=== PATIENT | female | born 1995 | race Caucasian/White ===

== ENCOUNTER 2017-10-10 12:02 | Emergency (ER) | payer OTHER ==
--- NOTE | 2017-10-10 13:57 | RAD ---
RIGHT WRIST RADIOGRAPHS 3 VIEWS: DATE: 10/10/17. PROVIDED CLINICAL HISTORY: Right wrist pain status post injury. FINDINGS: No definite evidence for a fracture or other acute osseous abnormality. If there is persistent clini nemo concern, conservative management and followup imaging are advised. Subtle vertical radiolucency projecting over the distal radius on the frontal view is presumably artifactual as it is not reproduc ed on the additional views. IMPRESSION: As above. POS: [facility]
== END 2017-10-10 12:33 | disposition home or self-care (01) ==
LOC: ERS 12:02
DX: S63.501A Unspecified sprain of right wrist, initial encounter (principal); S64.11XA Injury of median nerve at wrist and hand level of right arm, initial encounter; X50.1XXA Overexertion from prolonged static or awkward postures, initial encounter; Y99.0 Civilian activity done for income or pay

== ENCOUNTER 2017-12-08 05:21 | Emergency (ER) | payer OTHER ==
[2017-12-08] MEDS ORDERED: Ketorolac Tromethamine 30 MG/ML VIAL ONE (05:30)
[2017-12-08] MEDS ORDERED: Acetaminophen 500 MG TAB ONE (07:16)
--- NOTE | 2017-12-08 08:59 | RAD ---
CHEST 1 VIEW: Date: 12/08/17 HISTORY: 22-year-old female with history of chest pain, primarily left-sided, with difficulty breathing. FINDINGS: Monitor leads overlie the chest. Heart size is within normal limits. The lungs are clear. IMPRESSION: No acute intrathoracic disease. POS: [facility]
--- NOTE | 2017-12-12 12:51 | EKG ---
Test Reason : LSIDE PAIN Blood Pressure : / mmHG Vent. Rate : 079 BPM Atrial Rate : 079 BPM P-R Int : 144 ms QRS Dur : 074 ms QT Int : 366 ms P-R-T Axes : 092 063 063 degrees QTc Int : 419 ms Normal sinus rhythm Normal ECG Confirmed by JEREMY MEJIA ([id number]), staff editor ELSA PEDRAZA ([id number]) on 12/12/2017 12:51:09 PM Referred By: JEISON Confirmed By:JEREMY MEJIA
== END 2017-12-08 07:21 | disposition home or self-care (01) ==
LOC: ERS 05:21
DX: R07.89 Other chest pain (principal)
CPT/HCPCS: 36415; 71045; 85379; 93005; 96374; J1885